=== PATIENT | male | born 1985 | race Caucasian/White ===

== ENCOUNTER → 2024-03-01 15:23 | Outpatient (CLI) | payer OTHER, SELFPAY ==
--- NOTE | 2024-03-01 15:25 | DI.MRI.S_ITS ---
PROCEDURE: MR SHOULDER RT WO CON INDICATIONS: PAIN IN RT SHOULDER TECHNIQUE: Noncontrast oblique coronal T2 fast spin echo with fat saturation, oblique sagittal T1 spin echo and T2 fast spin echo with fat saturation, axial T1 spin echo and T2 fast spin echo with fat saturation through the shoulder. COMPARISON: None. FINDINGS: Image quality: Excellent. Rotator cuff: The supraspinatus, infraspinatus, and subscapularis tendons appear intact throughout. Sagittal images demonstrate no muscle atrophy. Bones and bursae: No bone marrow contusions or fractures. There is moderate acromioclavicular joint degeneration. The acromion demonstrates conventional anatomy, without an os acromiale. No pathologic subacromial-subdeltoid or subcoracoid bursal fluid is present. Capsule and soft tissues: There imaging findings suggestive of a tear involving the posterior glenoid labrum with a moderate-sized septated paralabral cyst extending into the glenoid notch region measuring 3.5 by 2.3 centimeters in maximal dimension. If further evaluation is clinically indicated MR arthrogram may be of further clinical value. The long head of the biceps tendon demonstrates normal location and morphology. The rotator interval appears normal, without fibrosis. The coracohumeral ligament is normal in thickness. IMPRESSION: 1. Imaging findings suggestive of a tear involving the posterior glenoid labrum with a multi septated paralabral cyst extending into the glenoid notch region. This measures 3.2 by 2.3 centimeters in maximal dimension. If further evaluation is clinically indicated MR arthrogram may be of further clinical value. 2. Moderate AC joint degenerative change. Dictated by: Paras Walden M.D. on 03/02/2024 at 8:27 Approved by: Paras Walden M.D. on 03/02/2024 at 8:34
== END ==
LOC: MRI 15:24
PROVIDERS: Referring Provider Nurse Practitioner Family; Visit Provider Nurse Practitioner Family
DX: S43.431A Superior glenoid labrum lesion of right shoulder, initial encounter (principal); M25.511 Pain in right shoulder
CPT/HCPCS: 73221